=== PATIENT | female | born 1975 | race Caucasian/White ===

== ENCOUNTER 2018-10-09 20:18 | Emergency (ER) | END 2018-10-10 00:54 | disposition home or self-care (01) ==

== ENCOUNTER 2019-05-25 05:14 | Inpatient (IN) | payer BC ==
[2019-05-25] VITALS (27 sets, daily range): BP systolic 108–147; BP diastolic 56–80; PULSE 80–100; RESP 16–22; Ht 162.6 cm; Wt 87.5 kg
[~2019-05-25] VITALS: Ht 162.6 cm; Wt 87.5 kg
[~2019-05-25 05:14] MED LIST: IBUP800T48 PO
--- NOTE | 2019-05-25 06:27 | PREOPHP ---
DATE OF ADMISSION: 05/25/2019 HISTORY OF PRESENT ILLNESS: This is a 44-year-old lady, 2, para 2. Her last normal menstrua l period was about a few days prior to admission. She was admitted for exploratory laparotomy, supra cervical hysterectomy, possible BSO with endometriosis. This patient complains of bleeding very heav y with her periods associated with blood clots for the last 5 years. Then, the period lasts for 7 da ys and was getting worse for the last 6 months. She also has on and off lower abdominal pain that cary abe had gone to the emergency room for this pain. The patient was told to go to a jewel waxer f irsyoung before any BONDING MACHINE TENDER surgery. Ultrasound showed a normal size uterus, but with endometrial thickening . Because of the chronic pelvic pain and menorrhagia, she wanted to have the above procedure. The p rocedures were explained to her and she understood everything totally. The risks, benefits, and alte rnatives were discussed with her as well. PAST PERSONAL HISTORY: No history of TB, asthma nor allergy. The patient is diabetic. SURGICAL HISTORY: She has a cyst removed from her right breast. FAMILY HISTORY: Mother has diabetes and father had cancer. She is 2, para 2 with 2 normal d eliveries. GYNECOLOGIC HISTORY: She had menarche at the age of 8, every 28 days interval, 3 to 4 days duration , and moderate in amount. REVIEW OF SYSTEMS: CARDIOVASCULAR: No chest pains. RESPIRATORY: No cough. GASTROINTESTINAL: No diarrhea, no vomiting. PHYSICAL EXAMINATION: GENERAL: Reveals a conscious, coherent lady and in not acute distress. VITAL SIGNS: Blood pressure 130/80, pulse rate 80 per minute, respirations 16 per minute. BREASTS, HEART AND LUNGS: Within normal limits. ABDOMEN: Soft and obese. PELVIC: Revealed the cervix to be firm, uterus of the upper limit of normal, and adnexa were negativ e for masses. RECTAL: Confirmed the pelvic findings. EXTREMITIES: No pedal edema. ADMITTING DIAGNOSES: Chronic pelvic pain, menorrhagia and obesity. PLAN: The patient was planned to have the above procedure. Dictated By: KARLA MAYS/NTS Conf#: [id number] DID#: [id number]
[2019-05-25] MEDS ORDERED: SOD CHLORIDE 0.9% 1,000 ML IV SCH (06:30)
[2019-05-25] MEDS ORDERED: METF850T13 PO (07:07)
[2019-05-25] MEDS ORDERED: ATOR20TA65 ORAL (07:07)
[2019-05-25] MEDS ORDERED: HYDR12.53 ORAL (07:07)
--- NOTE | 2019-05-25 07:28 | PREAC ---
Date/Time of Note Date/Time of Note DATE: 05/25/19 TIME: : Anesthesia Eval and Record Evaluation Time Pre-Procedure Interview DATE: 05/25/19 TIME: : Age 44 Sex female NPO: 8 hrs Preoperative diagnosis pelvic Pain Planned procedure Exploratory laparotomy Past Medical History Past Medical History: Includes Cardio: Dyslipidemia Endo: Diabetes GI: Morbid obesity Surgery & Anesthesia Issues No known issue Meds Anticoagulation: No Beta Geovanni within 24 hr: No Reason Beta Geovanni not given: Pt. not on B-Geovanni Reported Medications Atorvastatin Calcium (Atorvastatin Calcium) 20 Mg Tablet, 1 TAB ORAL QHS 05/25/19 Hydrochlorothiazide (Hydrochlorothiazide) 12.5 Mg Capsule, 1 CAP ORAL DAILY 05/25/19 Metformin Hcl* (Metformin Hcl*) 850 Mg Tablet, 850 MG PO WITH BREAKFAST DINNE, #30 TAB 05/25/19 Discontinued Scripts Ibuprofen* (Motrin*) 800 Mg Tab, 800 MG PO Q6H PRN for PAIN AND OR ELEVATED TEMP, #30 TAB Prov:SINDY HOLLINS MD 10/10/18 Current Medications Sodium Chloride 1,000 ml @ 0 mls/hr Q0M IV Last administered on 05/25/19at 06:54; Admin Dose 25 MLS/HR; Start 05/25/19 at 06:30 Meds reviewed: Yes Allergies Coded Allergies: No Known Allergy (Unverified , 05/25/19) Allergies Reviewed: Yes Labs/Studies Labs Reviewed: Reviewed by anesthesiologist test: Negative Pre-procedure Exam Last vitals Vital Signs Date Temp Pulse Resp B/P (MAP) Pulse Ox O2 O2 Flow FiO2 Time Delivery Rate 05/25/19 97.9 88 18 147/80 97 Room Air 06:00 (102) Airway: Adequate mouth opening, Adequate thyromental dist Mallampati: Mallampati II Teeth: Normal Lung: Normal Heart: Normal ASA Physical Status ASA physical status: 3 Emergency: None Planned Anesthetic General/MAC: ETT Planned Pain Management Sub-arachniod narcotics, Parenteral pain med Pre-operative Attestations Prior to commencing anesthesia and surgery, the patient was re-evaluated, there was verification of: *The patient's identity *The results of appropriate recent lab work and preoperative vital signs *The above evaluation not changing prior to induction *Anesthetic plan, risk benefits, alternative and complications discussed with patient/family; questions answered; patient/family understands, accepts and wishes to proceed. JUAN CAZARES MD May 25, 2019 07:28
[2019-05-25] MEDS ORDERED: CEFAZOLIN 1 GM INJ ONE (07:30)
[2019-05-25] MEDS ORDERED: SEVOFLURANE 15 MIN ONE (07:30)
[2019-05-25] MEDS ORDERED: FENTAnyl 50 MCG/ML VIAL ONE (07:31)
[2019-05-25] MEDS ORDERED: MIDAZOLAM 1 MG/ML 2 ML INJ ONE (07:32)
[2019-05-25] MEDS ORDERED: morphine SULFATE/PF (10 MG/10 ML) INJ ONE (07:32)
[2019-05-25] MEDS ORDERED: ROCURONIUM 50 MG INJ ONE (09:05)
[2019-05-25] MEDS ORDERED: LIDOCAINE 2% (SDV) 5 ML INJ ONE (09:05)
[2019-05-25] MEDS ORDERED: PROPOFOL 20 ML ONE (09:05)
[2019-05-25] MEDS ORDERED: ONDANSETRON 4 MG INJ ONE (09:25)
--- NOTE | 2019-05-25 09:40 | PAC ---
Date/Time of Note Date/Time of Note DATE: 05/25/19 TIME: 09:39 Post-Anesthesia Notes Post-Anesthesia Note Last documented vital signs Vital Signs Date Temp Pulse Resp B/P (MAP) Pulse Ox O2 O2 Flow FiO2 Time Delivery Rate 05/25/19 97.9 88 18 147/80 97 Room Air 06:00 (102) Activity: WNL Respiratory function: WNL Cardiovascular function: WNL Mental status: Baseline Pain reasonably controlled: Yes Hydration appropriate: Yes Nausea/Vomiting absent: Yes Comments BP:112/56, P:78, Spo2:100%, T:98,8 JUAN CAZARES MD May 25, 2019 09:40
[2019-05-25] MEDS ORDERED: MEPERIDINE 25 MG INJ IV PRN (10:00)
[2019-05-25] MEDS ORDERED: OXYCODONE/ACETAMINOPHEN (5/325) TAB PO PRN (10:00)
[2019-05-25] MEDS ORDERED: DIPHENHYDRAMINE 50 MG INJ IV PRN (10:00)
[2019-05-25] MEDS ORDERED: ONDANSETRON 4 MG INJ IV PRN ×2 (10:00→10:30)
[2019-05-25] MEDS ORDERED: HYDROmorphONE 1 MG/5 ML IV SYRINGE IV PRN (10:00)
[2019-05-25] MEDS ORDERED: METOCLOPRAMIDE 10 MG INJ IV PRN (10:00)
[2019-05-25] MEDS ORDERED: FENTAnyl 50 MCG/ML VIAL IV PRN (10:00)
[2019-05-25] MEDS ORDERED: KETOROLAC 30 MG INJ IV PRN (10:00)
--- NOTE | 2019-05-25 10:08 | SIPON ---
Date/Time of Note Date/Time of Note DATE: 05/25/19 TIME: 10:05 Operative Report Preoperative Diagnosis MENORRHAGIA CHRONIC PELVIC PAIN ANEMIA Postoperative Diagnosis MENORRHAGIA CHRONIC PELVIC PAIN ANEMIA POSSIBLE ADENOMYOSIS Operation/Procedure Performed EXPLORATORY LAPAROTOMY SUPRACERVICAL HYSTERECTOMY BILATERAL SALPHINGECTOMY VAGINAL VAULT SUSPENSION Surgeon see signature line assistant branch manager DR MUNOZ Anesthesia: general Estimated blood loss: 150 - 200 ml's Transfusion Required none Specimen 2 PARTS OF CERVIX BODY OF UTERUS BOTH TUBES Grafts/Implants none Complications none KARLA MIRELES MD May 25, 2019 10:08
[2019-05-25] MEDS: HYDROmorphONE 1 MG/5 ML IV SYRINGE IV PRN ×2 (12:23→12:31)
[2019-05-25] MEDS: LACTATED RINGER'S 1,000 ML IV SCH ×3 (12:24→19:06)
[2019-05-25] MEDS: HYDROmorphONE 1 MG/ML SYG IV PRN ×2 (16:26→20:59)
[2019-05-25] MEDS ORDERED: HYDROmorphONE 2 MG/ML SYG IV PRN (16:30)
[2019-05-26 00:05] VITALS: BP 135/69; PULSE 102; RESP 20
--- NOTE | 2019-05-26 00:15 | OPR ---
DATE OF OPERATION: 05/25/2019 PREOPERATIVE DIAGNOSES: Menorrhagia, endometrial thickening, chronic pelvic pain, obesity. POSTOPERATIVE DIAGNOSES: Menorrhagia, endometrial thickening, chronic pelvic pain, obesity, possible adenomyosis, polycystic ovaries. SURGEON: Karla Pang MD. PHOTORESIST PRINTER: Dr. Neves. ANESTHESIA: General. ANESTHESIOLOGIST: Dr. Myers. OPERATION PERFORMED: Exploratory laparotomy, supracervical hysterectomy, bilateral salpingectomy, va ginal vault suspension and drilling of both ovaries. OPERATIVE TECHNIQUE: Under general anesthesia, the patient was prepped and draped in the usual fashi on for abdominal surgery. After checking for the effect of the anesthesia, Pfannenstiel incision, 14 cm skin incision, was performed. The incision was carried from the skin up to the fascia. A Pfanne nstiel incision was performed. The incision was carried from the skin up to the fascia. Upon openin g the skin up to the fascia, small blood vessels were noted to be oozing and these were all cauterize d. Fascia was opened transversely followed by splitting the muscles vertically and the peritoneum ve rtically. Upon opening the abdominal cavity, there was a lot of omental tissue, a thick omental tiss ue was noted. Then, the self-retaining retractor was put in place, the bladder blade was put in plac e, the bowels were packed away from the operative field with the aid of 5 wet lap sponges and the upp er blade was put in place. The uterus was pulled out from the pelvic cavity with a tenaculum. It wa s noted to be about 12 to 14 weeks size and very soft. There were no endometriotic implants noted at the cul-de-sac. Both ovaries were identified and they are noted to have a polycystic ovaries. Then , the two 8-inch Kochers were placed at each paratubal and paraovarian ligament for traction. The le ft round ligament was grasped with 2 Kochers and cut. A stick tie with 0 Vicryl was used and tagged. The left broad ligament was skeletonized for the development of the bladder flap. Then, the left u tero-ovarian, left uterotubal ligament was grasped with 2 Ledy clamps and pulled back with a straig ht Jazlyn and cut. At first, a free tie with 0 Vicryl was used followed by Ledy suture. Bleeders were checked, and there was no bleeding noted. Same thing was done on the right side. The right rou nd ligament was grasped with 2 Kochers and cut. A stick tie with 0 Vicryl was used and tagged. The right broad ligament was skeletonized for the development of the bladder flap. The right utero-ovari an and right uterotubal ligament was grasped with 2 Ledy clamps and pulled back with a straight Koc her and cut. At first, a free tie with 0 Vicryl was used followed by Ledy suture. Bleeders were c hecked, and there was no bleeding noted. Once again, the broad ligament on both sides was skeletoniz ed for the development of the bladder flap. Then, the bladder was from the cervix by sharp and blunt dissection. The left uterine vessels were brought to view. The left uterine vessels were grasped with 2 Ledy clamps and pulled back with a straight Jazlyn and cut. A stick tie with 0 Oh ryl was used on each clamp. Bleeders were checked, and there was no bleeding noted. Same thing was done on the right side. No bleeding was noted. One more Jazlyn was placed at each paracervical tiss ue on the left and right side,and on each Jazlyn, the tissue was cut and a stick tie with 0 Vicryl wa s used. The body of the uterus was excised. The pelvis was noted to be very deep. Then, the remain ing cervix was grasped with 2 single tooth tenaculum. Once again, the bladder was from the cervix by sharp and blunt dissection. About 4 Kochers were placed at each paracervical tissue on th e left and right side, and on each Jazlyn, the tissue was cut and a stick tie with 0 Vicryl was used. Bleeders were checked, and there was no bleeding noted. Part of the cervix was excised and then th e remaining cervix was grasped with 2 single tooth tenaculum. Once again, the cervix was f rom the bladder by sharp and blunt dissection. About 4 more Kochers were placed at each paracervical tissue on the left and the right side, and on each Jazlyn, the tissue was cut and a stick tie with 0 Vicryl was used. Then another piece of cervix was excised, one third of the cervix was left behind. The mucosa of the remaining cervix was cauterized. Then, the remaining cervix was grasped with 2 s arina tooth tenaculum. The cervix was closed in 3 layers using 0 Vicryl continuous suture was used. The right angle of the cervix was sutured with the right paracervical tissue and after checking for any bleeders in which there were none and in turn tied with the right round ligament for vaginal vaul t suspension. Same thing was done on the left side. Bleeders were checked, and there was no bleedin g noted. Irrigation was done to check for any bleeders and there was no bleeding noted. The right t ube was grasped with 2 Ledy clamps and the right tube was excised with a cyst. Then, at first, a f ree tie with 0 Vicryl was used followed by Ledy suture. Bleeders were checked, and there was no bl eeding noted. Same thing was done on the left side. The left tube was excised. Bleeders were check ed, and there was no bleeding noted. Once again, irrigation was done to check for any bleeders and t here was no bleeding noted. Then, after checking for any bleeders in which there were none, then the raw area was infiltrated with a Surgicel. After correct sponge count, needle count and instrument c ount as confirmed by the biodiesel process control technician and topographical drafter, the abdomen was closed in the usual fashion using 0 Vicryl for the peritoneum, 0 Vicryl for the muscles. For the fascia, 0 Vicryl continuous stitch w as used followed by few [id number] sutures. For the subcutaneous tissue, it was closed with 3-0 Vicryl and the skin was closed with 3-0 Vicryl, subcuticular suture was used. Also prior to closing the abdomen, both ovaries were drilled by cauterizing all the small follicles on the ovaries. As me ntioned, the postoperative diagnosis include polycystic ovaries. The patient tolerated the procedure well. Estimated blood loss was about 200 mL. Vital signs were stable during and after the procedur e. Dictated By: KARLA MAYS/CY Conf#: [id number] DID#: [id number]
[2019-05-26] MEDS: HYDROmorphONE 1 MG/ML SYG IV PRN ×3 (00:52→15:53)
[2019-05-26] MEDS ORDERED: HYDROCODONE/APAP (5/325) TAB PO PRN ×3 (03:10→18:00)
[2019-05-26] MEDS: LACTATED RINGER'S 1,000 ML IV SCH ×3 (03:18→18:48)
[2019-05-26] MEDS: HYDROCODONE/APAP (5/325) TAB PO PRN ×3 (03:20→18:52)
[2019-05-26] MEDS ORDERED: MAGNESIUM HYDROXIDE 30ML CUP PO ONE ×2 (06:00→17:00)
[2019-05-26] MEDS ORDERED: BISACODYL 10 MG SUPP PR ONE ×3 (06:00→17:00)
[2019-05-26 07:30] VITALS: BP 116/57; PULSE 81; RESP 18
[2019-05-26 14:42] VITALS: BP 114/55; PULSE 90; RESP 18
[2019-05-26] MEDS: IBUPROFEN 800 MG TAB PO PRN (15:41)
[2019-05-26 19:25] VITALS: BP 107/58; PULSE 88; RESP 20
[2019-05-27 02:15] VITALS: BP 102/54; PULSE 80; RESP 20
[2019-05-27] MEDS: LACTATED RINGER'S 1,000 ML IV SCH ×2 (02:54→18:09)
[2019-05-27 07:58] VITALS: BP 125/62; PULSE 72; RESP 19
[2019-05-27] MEDS: IBUPROFEN 800 MG TAB PO PRN (09:50)
[2019-05-27 15:16] VITALS: BP 112/63; PULSE 86; RESP 18
--- NOTE | 2019-05-29 17:37 | PN ---
DATE: 05/26/2019 TIME: 8:30 a.m. SUBJECTIVE: The patient feels good, had good gas per rectum, had little bowel movement. She is complaining of incisional pain. OBJECTIVE VITAL SIGNS: She is afebrile. Vital signs stable. LUNGS: Clear. HEART: Normal sinus rhythm. ABDOMEN: Soft. Wound dry and clean. No distention and no vaginal bleeding noted. EXTREMITIES: No calf tenderness. ASSESSMENT: Postoperative day 1. PLAN: Advance diet as tolerated. Repeat CBC tomorrow morning. Long discussion about the procedure with the patient. Dictated By: KARLA MIRELES MD NS/NTS Conf#: [id number] DID#: [id number] CC: KARLA MIRELES MD;*EndCC*
--- NOTE | 2019-05-29 17:38 | PN ---
DATE: 05/27/2019 TIME: 9:30 a.m. SUBJECTIVE: The patient feels good. Good bowel movement, good urine output, less incisional pain. OBJECTIVE: VITAL SIGNS: She is afebrile. Vital signs stable. ABDOMEN: Soft. Wound dry and clean. No distention. EXTREMITIES: No calf tenderness. ASSESSMENT: Postop day 1. PLAN: Home today. She was counseled. She was instructed. She was given a prescription for pain. She was told to come back to the clinic in 2 weeks. She was told to call the office if there is any problem or concern. Dictated By: KARLA MAYS/CY Conf#: [id number] DID#: [id number]
== END 2019-05-27 18:42 | disposition home or self-care (01) | DRG 743 ==
LOC: REC 05:14 → MS1 14:42
PROVIDERS: ADMIT Obstetrics & Gynecology; ATTEND Obstetrics & Gynecology
PROC: 0UT70ZZ Resection of Bilateral Fallopian Tubes, Open Approach (ICD-10-PCS; 2019-05-25)
PROC: 0UBC0ZZ Excision of Cervix, Open Approach (ICD-10-PCS; 2019-05-25)
PROC: 0USG0ZZ Reposition Vagina, Open Approach (ICD-10-PCS; 2019-05-25)
PROC: 0U520ZZ Destruction of Bilateral Ovaries, Open Approach (ICD-10-PCS; 2019-05-25)
PROC: 0UT90ZL Resection of Uterus, Supracervical, Open Approach (ICD-10-PCS; principal; 2019-05-25 07:30)
DX: N80.0 Endometriosis of uterus (principal); N92.0 Excessive and frequent menstruation with regular cycle; E66.9 Obesity, unspecified; E28.2 Polycystic ovarian syndrome; E11.9 Type 2 diabetes mellitus without complications; E78.5 Hyperlipidemia, unspecified; G89.29 Other chronic pain; R10.2 Pelvic and perineal pain
CPT/HCPCS: 80053; 82962; 84702; 85025; 86850; 86900; 86901; 88307; J0690; J1170; J2250; J2274; J2405; J3010; J7120